=== PATIENT | male | born 1955 | race Hispanic/Latino ===

== ENCOUNTER → 2020-02-04 | Outpatient (CLI) | payer MEDICARE ==
--- NOTE | 2020-02-04 12:10 | Diagnostic Imaging Report ---
Cervical Spine, 3 views HISTORY: Pain. COMPARISON: None. FINDINGS: Limited sensitivity for detection of subtle fractures and ligamentous abnormalities. On the lateral view, the cervical spine is visualized from the skull base to C7. The alignment is normal. No acute displaced fracture involving the visualized cervical spine. Disc Spaces and Uncovertebral Joints: Multilevel degenerative disc disease, worst at C6-C7. Facets: Mild multilevel facet arthrosis. IMPRESSION: Cervical spine degenerative change. No acute osseous abnormality. Signed by: James Evans MD on 02/04/2020 12:07 PM
--- NOTE | 2020-02-04 14:04 | Diagnostic Imaging Report ---
Examination: MRI BRAIN WO CONTRAST History: Dizziness for one year; headaches. Comparison studies: None Technique: Sagittal T2; axial DWI, FLAIR, GRE or SWI, T1, Coronal FLAIR. Intravenous contrast: None Findings: Scalp: No abnormal signal. No masses. Bone marrow: Normal in signal intensity. Brain volume: Adequate for age. No volume loss. Ventricles: Normal in size and configuration. No hydrocephalus. Extra-axial spaces: No abnormalities. Parenchyma: There are patchy and punctate areas of T2/FLAIR hyperintensity in the periventricular and subcortical white matter, nonspecific. No masses, hemorrhage, or acute vascular insults. Suprasellar and sellar region: No abnormalities. Craniocervical junction: No abnormalities. The foramen magnum is patent. No Chiari malformations. Vessels: Normal flow-voids in the arteries and sinuses. Additional findings:None. IMPRESSION: No acute intracranial abnormalities. Chronic microvascular ischemic change. Signed by: Dr. Kayla Wiggins M.D. on 02/04/2020 2:01 PM
== END ==
LOC: MRI 10:43
PROVIDERS: ATTEND Emergency Medicine
DX: R42 Dizziness and giddiness (principal); M54.2 Cervicalgia
CPT/HCPCS: 70551; 72050